=== PATIENT | male | born 1980 | race Caucasian/White ===

== ENCOUNTER → 2019-10-11 | Day surgery (SDC) | payer OTHER ==
[~2019-10-11] MED LIST: FENTANYL CITRATE/PF 100MCG/2 ML INJ ONE; LIDOCAINE HCL 2% LOCAL INJ 5 ML SDV VIAL INJ ONE; MIDAZOLAM HCL 2 MG/2 ML VIAL ONE; NEXIUM40 MG PO; OMEPRAZOLE40 MG PO; PANTOPRAZOLE 40 MG 10ML VIAL ONE; PROPOFOL IV EMULSION 10 MG/ML 20 ML VIAL ONE
--- OUTSIDE RECORDS SUMMARY | 2019-10-11 11:25 | XMS REPORT | Summary of Care ---
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 Name Role Phone Bert Mak MD PCP Reason for Visit * Reason Comments Blurred Vision Encounter Details Care Team Description Date Type Department Curtis Fischer MD [address] [place] [address] Blurred Vision 08/03/2019 Office Visit [facility] Ophthalmology [address] [place] [address] Allergies Comments Active Allergy Reactions Severity Noted Date Penicillins 06/23/2011 documented as of this encounter (statuses as of 08/03/2019) Medications End Date Status Medication Sig Dispensed Refills Start Date Active Benzoyl Peroxide 5 % Use once 1 Bottle 10 02/09 LIQDIndications: daily in 2 Folliculitis shower to entire body. Use white towels. Active doxycycline (VIBRAMYCIN) Take 1 Cap by 14 Cap 0 100 MG mouth two 2 capsuleIndications: times daily. Folliculitis Stay upright 30 minutes after taking dose to prevent esophagitis. Protect face from sun. Active ketoconazole (NIZORAL) 2 Apply 120 mL 10 0 % shampooIndications: topically. 2 Dermatitis seborrheica Apply to scalp 2-5x/week. Lather into scalp. Leave on for 5 minutes, then rinse off. Taper as tolerated to frequency needed for control. Active omeprazole (PRILOSEC) 10 Take 10 mg by 0 MG capsule mouth daily. 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 documented as of this encounter Last Filed Vital Signs Not on filedocumented in this encounter Progress Notes * Curtis Fischer MD - 08/03/2019 11:00 PM TELLER 34 yo WM with homozygous PDE6B mutations associated with RP. + hx of consanguini ty 1) new onset visual change OS - complains of diffuse blurry vision OS since last as if something is b locking is vision - does not complain of curtain or veil - had one flash 1 week prior but has resolved - SF-DFE without any evidence of retinal detachment or retinal tear, no vitreous hemorrhage, negative Shafers - no optic nerve edema, EOM full, no APD - no neurologic symptoms - OCT OS with subfoveal loss of EZ and small drusenoid PEDs - OCT OD with preserved subfoveal EZ and no drusen - no SRF on OCT or heme on examination suggestive of CNV although this would be rare in a patient with RP. - no CME on OCT OU - no prior OCT available for comparison - reassured patient that there is no acute retinal emergency such as retinal det achment - however, unfortunately patient appears to be losing his central photoreceptors consistent with progression of his already advanced RP - discussed in depth findings, patient expressed understanding - patient to see Dr. Mak this upcoming Monday for further discussion and evalu ation 2) Retinitis Pigmentosa- patient follows with Dr. Ramos and Dr. Mak - patient to see Dr. Mak this upcoming Monday ER documented in this encounter Plan of Treatment Care Team Description Date Type Specialty Bert Mak MD [address] [place] [id number] 08/12/2019 Office Visit Ophthalmology Health Maintenance Due Date Last Done Comments TETANUS SHOT (ADULT) 1993 FLU VACCINE > 6 MONTHS 01/03/2019 HIV SCREENING Completed 06/14/2011, 011 documented as of this encounter Results Not on filedocumented in this encounter Visit Diagnoses Diagnosis Biallelic mutation of PDE6B gene - Prim zunilda documented in this encounter Insurance Type Payer Benefit Subscriber ID Effective Phone Address Plan / Dates Group PPO [facility] CHOICE/CHO xxxxxxxxx 2012-P [address] [id number] PLUS/[facility]IO [facility] [id number] documented as of this encounter
--- OUTSIDE RECORDS SUMMARY | 2019-10-11 11:25 | XMS REPORT | Summary of Care ---
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 Name Role Phone Bert Mak MD PCP Reason for Visit * Reason Comments Eye Problem RP Encounter Details Care Team Description Date Type Department Bert Mak MD [address] [place], [place] [id number] Eye Problem (RP) 08/05/2019 Office Visit [facility] Ophthalmology [address] [place] [address] Allergies Comments Active Allergy Reactions Severity Noted Date Penicillins 06/23/2011 documented as of this encounter (statuses as of 08/05/2019) Medications End Date Status Medication Sig Dispensed [...] as of this encounter (statuses as of 08/05/2019) Active Problems Problem Noted Date 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 Retinitis pigmentosa 12/26/2016 Legal blindness 11/09/2015 Folliculitis 02/10/2012 Retinitis pigmentosa of both eyes 09/29/2011 Varicocele 06/23/2011 Other testicular hypofunction 06/23/2011 Female infertility associated with male factors 07/07 documented as of this encounter (statuses as of 08/05/2019) Social History Date Tobacco Use Types Packs/Day [...] filedocumented in this encounter Progress Notes * Bert Mak MD - 08/05/2019 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 There is no sign of ON dz or of CME or any other interv enable process that fits with this story. Offered Low Vision at the [facility]. VF's today are c/w his central loss and no ancillary process. TREAT PULLER documented in this encounter Plan of Treatment Health Maintenance Due Date Last Done Comments TETANUS SHOT (ADULT) 1993 FLU VACCINE > 6 MONTHS 01/03/2019 HIV SCREENING Completed 06/14/2011, 011 documented as of this encounter Procedures Comments Procedure Name Priority Date/Time Associated Diag nosis JAMES VISUAL FIELD - Routine 08/05/2019 Retini tis pigmentosa OU - BOTH EYES 11:27 AM HEAT TREAT PULLER documented in this encounter Results * JAMES VISUAL FIELD - OU - BOTH EYES (08/05/2019 11:27 AM HEAT TREAT PULLER) Specimen Narrative Performed At Right Eye Reliability was good. Progression has w orsened. Foveal threshold was reduced. Left Eye Reliability was good. Progression has w orsened. Foveal threshold was reduced. Notes Extensive circumferential losses OU, wo rse OS, c/w his current history. 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 Legal blindness Legal blindness, as defined in [place] documented in this encounter Insurance Type Payer Benefit Subscriber ID Effective Phone Address Plan / Dates Group PPO [facility] CHOICE/CHO xxxxxxxxx 2012-P [address] [id number] PLUS/OPTIO [facility] PPO - [facility] [id number] Guarantor Name Account Relation to Date of Phone Corina glaser Address Type Patient Laron Beal Personal/F Self 1980 [phone] [id number] [facility] (Home) [facility] [phone] [place] [address] documented as of this encounter
[2019-10-11 14:40] VITALS: BP 123/65
--- NOTE | 2019-10-11 19:14 | Operative Report ---
DATE OF PROCEDURE: 10/11/2019 SURGEON: Nitish Toro MD PROCEDURE: EGD with polypectomy and biopsies. INDICATIONS FOR PROCEDURE: Heartburn, indigestion, and upper abdominal pain. MEDICATIONS: The patient was done under MAC, please see anesthesiologist's note. PROCEDURE IN DETAIL: With the patient in the left lateral decubitus position, a flexible fiberoptic Olympus gastroscope was introduced into the esophagus under direct visualization without any difficulty. The esophagus appeared to be within normal limits. The scope was then advanced with ease through to the stomach traversing a small hiatal hernia. Mucosa overlying the antrum and the body revealed some patchy erythema and low-grade edema, and biopsies were obtained and sent to stain for H. pylori. Minute polyp was noted in distal body and that was partially excised with the cold biopsy forceps. Pylorus was of normal contour and shape, was intubated with ease and the scope was advanced all the way to the second portion of the duodenum. The scope was then withdrawn slowly and biopsies were obtained from the proximal second portion and duodenal bulb to rule out sprue. There was some minute nodule noted in the proximal second portion proximal to the ampulla and that was biopsied. The scope was then withdrawn back into the stomach and retroflexed and the previously described hiatal hernia was also noted in the retroflexed position. The scope was then straightened out, it was subsequently withdrawn, and the patient tolerated procedure well. IMPRESSION: 1. Normal esophagus. 2. Small hiatal hernia. 3. Gastritis, biopsied, biopsies sent to stain for Helicobacter pylori. 4. Gastric polyp, minute, distal body, partially excised with the cold biopsy forceps. 5. Minute nodule, proximal second portion, biopsied. 6. Rule out sprue. PLAN: Follow up histology. Initiate Protonix 40 mg one p.o. before meals b.i.d. If symptoms persist, we will add Reglan 10 mg p.o. before meals t.i.d. and at bedtime. Nitish Toro MD [facility] [place] /[id number]
== END | disposition home or self-care (01) ==
LOC: OR 11:22
PROVIDERS: ATTEND Internal Medicine Gastroenterology
DX: K29.50 Unspecified chronic gastritis without bleeding (principal); K31.7 Polyp of stomach and duodenum; K31.89 Other diseases of stomach and duodenum; K21.9 Gastro-esophageal reflux disease without esophagitis; K44.9 Diaphragmatic hernia without obstruction or gangrene; F41.9 Anxiety disorder, unspecified; Z88.0 Allergy status to penicillin; Z01.810 Encounter for preprocedural cardiovascular examination; Z01.812 Encounter for preprocedural laboratory examination; Z11.59 Encounter for screening for other viral diseases
CPT/HCPCS: 43239; 87635; 93005; C9113; J2001; J2250; J2704; J3010